=== PATIENT | male | born 1950 | race Caucasian/White ===

== ENCOUNTER 2020-09-15 20:10 | Emergency (ER) | payer MEDICARE ==
[2020-09-15 22:21] LABS: CORONAVIRUS 2019 SARS-COV-2 NEGATIVE (NEGATIVE)
[2020-09-15 22:22] LABS: INFLUENZA A NAA NEGATIVE (NEGATIVE)
[2020-09-15] MEDS ORDERED: ONDANSETRON ODT4 MG PO (22:36)
== END 2020-09-15 22:37 | disposition home or self-care (01) ==
LOC: FER 20:10
PROVIDERS: Student in an Organized Health Care Education/Training Program
DX: R51.9 Headache, unspecified (principal); B34.9 Viral infection, unspecified; I25.2 Old myocardial infarction; I10 Essential (primary) hypertension; Z86.73 Personal history of transient ischemic attack (TIA), and cerebral infarction without residual deficits; Z87.442 Personal history of urinary calculi; Z95.5 Presence of coronary angioplasty implant and graft; Z88.8 Allergy status to other drugs, medicaments and biological substances; Z20.822 Contact with and (suspected) exposure to COVID-19
CPT/HCPCS: 70450; J0780; J1200; U0002

== ENCOUNTER 2022-02-07 10:13 | Emergency (ER) | payer MEDICARE ==
[~2022-02-07 10:13] MED LIST: ONDANSETRON ODT4 MG PO
[2022-02-07 12:39] LABS: BASOPHIL 0.4 % (0-2); EOSINOPHIL 1.9 % (0-7); HCT 40.4 % (42.0-52.0); HGB 12.8 g/dl (13.2-18.0); LYMPHOCYTE 14.7 % (15-48); MCH 28.8 pg (25.0-31.0); MCHC 31.7 g/dL (32.0-36.0); MONOCYTE 9.1 % (0-12); MPV 10.2 fL (6.0-9.5); NEUTROPHIL 73.5 % (41-80); NRBC 0; PLT 309 K/uL (150-400); RBC 4.44 M/uL (4.70-6.00); RDW 14.3 % (11.5-14.0)
[2022-02-07 12:40] LABS: BILIRUBIN NEGATIVE (NEGATIVE); BLOOD NEGATIVE Ery/uL (NEGATIVE); CLARITY CLEAR (CLEAR); COLOR YELLOW (YELLOW); GLUCOSE (U) NORMAL (NORMAL); LEUKOCYTES NEGATIVE Leu/uL (NEGATIVE); NITRITE NEGATIVE (NEGATIVE); PROTEIN NEGATIVE (NEGATIVE); UROBILINOGEN 0.2 mg/dL (0.2-1.0)
[2022-02-07 12:43] LABS: INR 1.04 (0.9-1.2)
[2022-02-07 12:44] LABS: PTT 50.7 SECONDS (24.4-34.7)
[2022-02-07 12:48] LABS: IRON 42 ug/dL (65-175); IRON % SATURATION 11.7 %SAT (20-50)
[2022-02-07 12:51] LABS: SALICYLATE < 0 mg/dL (2.8-20.0)
[2022-02-07 12:54] LABS: AMPHETAMINES NEGATIVE (NEGATIVE); BARBITURATES NEGATIVE (NEGATIVE); ECSTASY (MDMA) NEGATIVE (NEGATIVE); MARIJUANA (THC) NEGATIVE (NEGATIVE); METHADONE NEGATIVE (NEGATIVE); OPIATES NEGATIVE (NEGATIVE); OXYCODONE NEGATIVE (NEGATIVE)
[2022-02-07 13:00] LABS: ALBUMIN 3.2 g/dL (3.4-5.0); BILIRUBIN - TOTAL 0.4 mg/dL (0.2-1.0); BUN/CREAT RATIO (CALC) 21.4 RATIO; C-REACTIVE PROTEIN 3.4 mg/dL (<=0.90); CREATININE 1.12 mg/dL (0.67-1.17); FT4 (FREE T4) 1.1 ng/dL (0.76-1.46); GLOBULIN (CALCULATION) 4.2 g/dL; PHOSPHORUS 3.6 mg/dL (2.6-4.7); POTASSIUM 3.9 mmol/L (3.5-5.1); TOTAL PROTEIN 7.4 g/dL (6.4-8.2)
[2022-02-07 13:13] LABS: LACTIC ACID 0.8 mmol/L (0.4-1.9)
[2022-02-07] MEDS ORDERED: NORCO 5-325 TA1 EACH PO (15:40)
== END 2022-02-07 16:00 | disposition home or self-care (01) ==
LOC: FER 10:13
PROVIDERS: Emergency Medicine
DX: R44.1 Visual hallucinations (principal); T38.0X5A Adverse effect of glucocorticoids and synthetic analogues, initial encounter; M51.16 Intervertebral disc disorders with radiculopathy, lumbar region; Z88.8 Allergy status to other drugs, medicaments and biological substances
CPT/HCPCS: 36415; 70450; 72131; 80053; 80305; 81003; 82140; 82728; 83540; 83550; 83605; 83615; 83690; 83735; 83880; 84100; 84145; 84439; 84443; 84484; 85025; 85610; 85730; 86140; 87040; 87088; 93005; G0480; J1170; J2405

== ENCOUNTER 2022-02-12 16:34 | Day surgery (SDCO) | payer MEDICARE ==
[~2022-02-12] VITALS: Ht 177.8 cm; Wt 73.3 kg
[~2022-02-12 16:34] MED LIST changes: +NORCO 5-325 TA1 EACH PO
[2022-02-12 18:38] LABS: BASOPHIL 0.5 % (0-2); EOSINOPHIL 0.1 % (0-7); HCT 46.6 % (42.0-52.0); HGB 14.6 g/dl (13.2-18.0); LYMPHOCYTE 11.5 % (15-48); MCH 28.9 pg (25.0-31.0); MCHC 31.3 g/dL (32.0-36.0); MCV 92.1 fL (78.0-100.0); MONOCYTE 3.1 % (0-12); MPV 9.7 fL (6.0-9.5); NEUTROPHIL 84.4 % (41-80); NRBC 0; PLT 311 K/uL (150-400); RBC 5.06 M/uL (4.70-6.00); RDW 13.3 % (11.5-14.0); WBC 9.4 K/uL (4.0-10.5)
[2022-02-12 19:25] LABS: LACTIC ACID 1.1 mmol/L (0.4-1.9)
[2022-02-12 19:28] LABS: ALBUMIN 3.2 g/dL (3.4-5.0); BILIRUBIN - TOTAL 0.6 mg/dL (0.2-1.0); BUN/CREAT RATIO (CALC) 22.6 RATIO; CREATININE 0.93 mg/dL (0.67-1.17); GLOBULIN (CALCULATION) 4.8 g/dL
[2022-02-12 23:12] LABS: BILIRUBIN NEGATIVE (NEGATIVE); BLOOD NEGATIVE Ery/uL (NEGATIVE); CLARITY CLEAR (CLEAR); COLOR YELLOW (YELLOW); GLUCOSE (U) NORMAL (NORMAL); LEUKOCYTES NEGATIVE Leu/uL (NEGATIVE); NITRITE NEGATIVE (NEGATIVE); PROTEIN TRACE (LOW) mg/dL (NEGATIVE); SPECIFIC GRAVITY >=1.030 (1.001-1.030); UROBILINOGEN 0.2 mg/dL (0.2-1.0)
[2022-02-12 23:36] LABS: URINARY RBC RARE; URINARY WBC RARE
[2022-02-12 23:37] LABS: BACTERIA TRACE; MUCOUS TRACE
[2022-02-12] MEDS ORDERED: COREG 6.25MG6.25 MG PO (23:54)
[2022-02-12] MEDS ORDERED: ASPIRIN81 MG PO (23:54)
[2022-02-12] MEDS ORDERED: PROTONIX 40MG T40 MG PO (23:55)
[2022-02-12] MEDS ORDERED: PLAVIX75 MG PO (23:55)
[2022-02-12] MEDS ORDERED: VITAMIN D21250 MCG PO (23:57)
[2022-02-12] MEDS ORDERED: LIPITOR40 M1 PO (23:58)
[2022-02-12] MEDS ORDERED: TRAZODONE HCL150 MG PO (23:59)
[2022-02-13] MEDS ORDERED: PLAQUENIL200 MG PO
[2022-02-13 07:00] LABS: BASOPHIL 0.5 % (0-2); EOSINOPHIL 0.4 % (0-7); HCT 37.6 % (42.0-52.0); HGB 12.4 g/dl (13.2-18.0); LYMPHOCYTE 22.5 % (15-48); MCH 29.3 pg (25.0-31.0); MCV 88.9 fL (78.0-100.0); MONOCYTE 7.7 % (0-12); MPV 9.7 fL (6.0-9.5); NEUTROPHIL 68.5 % (41-80); NRBC 0; PLT 302 K/uL (150-400); RBC 4.23 M/uL (4.70-6.00); RDW 13.5 % (11.5-14.0); WBC 7.4 K/uL (4.0-10.5)
[2022-02-13 07:32] LABS: ALBUMIN 2.8 g/dL (3.4-5.0); BILIRUBIN - TOTAL 0.5 mg/dL (0.2-1.0); BUN/CREAT RATIO (CALC) 19.4 RATIO; CREATININE 1.03 mg/dL (0.67-1.17); MAGNESIUM 1.8 mg/dL (1.8-2.4); PHOSPHORUS 3.2 mg/dL (2.6-4.7); POTASSIUM 3.8 mmol/L (3.5-5.1); TOTAL PROTEIN 6.8 g/dL (6.4-8.2)
[2022-02-13] MEDS ORDERED: ZYVOX600 MG PO (13:27)
[2022-02-14 06:50] LABS: BASOPHIL 0.3 % (0-2); EOSINOPHIL 0.1 % (0-7); HCT 36.1 % (42.0-52.0); HGB 12.1 g/dl (13.2-18.0); LYMPHOCYTE 15.1 % (15-48); MCH 29.4 pg (25.0-31.0); MCHC 33.5 g/dL (32.0-36.0); MCV 87.8 fL (78.0-100.0); MONOCYTE 6.5 % (0-12); MPV 9.8 fL (6.0-9.5); NEUTROPHIL 77.7 % (41-80); NRBC 0; PLT 291 K/uL (150-400); RBC 4.11 M/uL (4.70-6.00); RDW 13.5 % (11.5-14.0)
[2022-02-14 07:20] LABS: ALBUMIN 2.8 g/dL (3.4-5.0); BILIRUBIN - TOTAL 0.5 mg/dL (0.2-1.0); BUN/CREAT RATIO (CALC) 11.8 RATIO; CREATININE 0.93 mg/dL (0.67-1.17); GLOBULIN (CALCULATION) 3.7 g/dL; POTASSIUM 3.5 mmol/L (3.5-5.1); TOTAL PROTEIN 6.5 g/dL (6.4-8.2)
--- NOTE | 2022-02-14 09:59 | NUR ---
02/14/22 Mr. Nuñez lives at home with his spouse and 3 grandchildren. He has a cane. PCP = Dr. Oates. The family are able to meet their financial obligations. - No interventions are needed.
--- NOTE | 2022-02-14 18:04 | NUR ---
1700 IV SITE CHANGED TO RIGHT HAND #22 B/P 186/89, HR 68
== END 2022-02-14 22:23 | disposition other institution (70) ==
LOC: FER 16:34 → FMS 22:13 → FICU 02-14 18:10
PROVIDERS: Emergency Medicine; Nurse Practitioner; ADMIT Internal Medicine
DX: I62.9 Nontraumatic intracranial hemorrhage, unspecified (principal); K38.1 Appendicular concretions; M06.9 Rheumatoid arthritis, unspecified; J44.9 Chronic obstructive pulmonary disease, unspecified; E78.5 Hyperlipidemia, unspecified; I10 Essential (primary) hypertension; I25.10 Atherosclerotic heart disease of native coronary artery without angina pectoris; Z87.891 Personal history of nicotine dependence; Z79.02 Long term (current) use of antithrombotics/antiplatelets; Z79.82 Long term (current) use of aspirin; Z88.8 Allergy status to other drugs, medicaments and biological substances; Z20.822 Contact with and (suspected) exposure to COVID-19; Z86.73 Personal history of transient ischemic attack (TIA), and cerebral infarction without residual deficits
CPT/HCPCS: 36415; 70450; 80053; 81001; 83605; 83735; 84100; 84145; 84484; 85025; 93005; 94010; C9113; G0378; J0360; J0780; J1170; J1650; J1790; J2405; J7030; U0002